=== PATIENT | male | born 1960 | race Caucasian/White ===

== ENCOUNTER → 2017-10-20 | Outpatient (CLI) | payer BC ==
[2017-10-20 07:57] LABS: BASOPHILS % (AUTO) 1 % (0-10); EOSINOPHILS # (AUTO) 0.2 10^3/uL (0.0-0.3); EOSINOPHILS % (AUTO) 2 % (0-10); HEMATOCRIT 49 % (40-54); HEMOGLOBIN 16.8 G/DL (13.3-17.7); LYMPHOCYTES # (AUTO) 1.1 X 10^3 (1.0-4.0); LYMPHOCYTES % (AUTO) 16 % (12-44); MEAN CORPUSCULAR HEMOGLOBIN 33 PG (25-34); MEAN CORPUSCULAR HGB CONC 35 G/DL (32-36); MEAN CORPUSCULAR VOLUME 95 FL (80-99); MEAN PLATELET VOLUME 9.9 FL (7.4-10.4); MONOCYTES # (AUTO) 0.8 X 10^3 (0.0-1.0); MONOCYTES % (AUTO) 11 % (0-12); NEUTROPHILS # (AUTO) 5.2 X 10^3 (1.8-7.8); NEUTROPHILS % (AUTO) 71 % (42-75); PLATELET COUNT 184 10^3/uL (130-400); RED BLOOD COUNT 5.11 10^6/uL (4.35-5.85); RED CELL DISTRIBUTION WIDTH 13.5 % (10.0-14.5); WHITE BLOOD COUNT 7.3 10^3/uL (4.3-11.0)
[2017-10-20 08:11] LABS: ALANINE AMINOTRANSFERASE 47 U/L (0-55); ALBUMIN 3.9 GM/DL (3.2-4.5); ALKALINE PHOSPHATASE 147 U/L (40-136); BILIRUBIN,TOTAL 0.8 MG/DL (0.1-1.0); BUN/CREATININE RATIO 15; CALCIUM 9.2 MG/DL (8.5-10.1); CARBON DIOXIDE 22 MMOL/L (21-32); CHLORIDE 99 MMOL/L (98-107); CHOLESTEROL 138 MG/DL (< 200); CREATININE SERUM 0.79 MG/DL (0.60-1.30); GFR ESTIMATED > 60; GLUCOSE 391 MG/DL (70-105); HDL CHOLESTEROL 25 MG/DL (40-60); POTASSIUM 4.1 MMOL/L (3.6-5.0); SODIUM 132 MMOL/L (135-145); TOTAL PROTEIN 7.1 GM/DL (6.4-8.2); TRIGLYCERIDES 213 MG/DL (<150); VLDL CHOLESTEROL 43 MG/DL (5-40)
== END ==
LOC: LAB 07:22
PROVIDERS: ATTEND Nurse Practitioner Family
DX: Z12.5 Encounter for screening for malignant neoplasm of prostate (principal); R63.4 Abnormal weight loss; R53.83 Other fatigue; L65.9 Nonscarring hair loss, unspecified; I25.2 Old myocardial infarction
CPT/HCPCS: 36415; 80053; 80061; 83036; 84153; 84443; 85025

== ENCOUNTER → 2018-11-15 | Outpatient (CLI) | payer BC | LOC: CARD 09:37 | PROVIDERS: ATTEND Physician Assistant | DX: I11.0 Hypertensive heart disease with heart failure (principal); I25.10 Atherosclerotic heart disease of native coronary artery without angina pectoris; I50.9 Heart failure, unspecified; E78.2 Mixed hyperlipidemia; I51.7 Cardiomegaly | CPT/HCPCS: 93306 ==

== ENCOUNTER 2020-11-12 05:31 | Outpatient (CLI) | payer OTHER, BC ==
[~2020-11-12] VITALS: Ht 177.8 cm; Wt 130.0 kg
[2020-11-12] MEDS ORDERED: SPIR25TA5 PO (12:21)
[2020-11-12] MEDS ORDERED: LISI-729 PO (12:21)
[2020-11-12] MEDS ORDERED: SIMV40TA25 PO (12:21)
[2020-11-12] MEDS ORDERED: CLOP75TA28 PO (12:21)
[2020-11-12] MEDS ORDERED: ASPI-999 PO (12:21)
== END 2020-11-12 12:23 | disposition home or self-care (01) ==
LOC: PREOP 05:31
PROVIDERS: ATTEND Orthopaedic Surgery
DX: Z01.818 Encounter for other preprocedural examination (principal)
CPT/HCPCS: 87081

== ENCOUNTER 2020-11-19 06:18 | Day surgery (SDC) | payer OTHER, BC ==
--- NOTE | 2020-11-09 05:24 | HISTORY AND PHYSICAL ---
DATE OF SERVICE: HISTORY AND PHYSICAL FOR OUTPATIENT SURGERY DATE OF SERVICE OR SURGERY: 11/19/2020. REASON FOR SURGERY: Right knee arthroscopy. HISTORY OF PRESENT ILLNESS: The patient is a 60-year-old gentleman who injured his right knee while climbing a ladder. He felt and heard a pop. He had continued medial knee pain with associated swelling. He had tried rest and activity modification, but reported continued pain and swelling, worse with twisting and pivoting activities. An MRI revealed a complex tear of the medial meniscus as well as a parameniscal cyst. Due to functional impairment and failure to improve with conservative measures, the patient elected to proceed with surgical intervention. REVIEW OF SYSTEMS: No recent chest pain, shortness of breath or dysuria. PAST MEDICAL HISTORY: Diabetes, coronary artery disease, hypertension, sleep apnea. PAST SURGICAL HISTORY: Bilateral carpal tunnel, bilateral cubital tunnel, coronary stent placement. FAMILY HISTORY: Significant for hypertension, diabetes. PRIMARY CARE PROVIDER: None. MEDICATIONS: Simvastatin, spironolactone, lisinopril, clopidogrel. ALLERGIES: No known drug allergies. SOCIAL HISTORY: The patient denies alcohol and tobacco use. PHYSICAL EXAMINATION: GENERAL: The patient is well-developed, well-nourished, in no acute distress. HEENT: Normocephalic, atraumatic. Pupils are equal, round and reactive to light. Oropharynx is clear. NECK: Supple, with no lymphadenopathy. LUNGS: Clear to auscultation bilaterally. HEART: Regular rate and rhythm. ABDOMEN: Soft, nontender, nondistended. EXTREMITIES: The right knee demonstrates tenderness along his medial joint line, has pain medially with Yana's. There is no varus-valgus laxity. Negative anterior and posterior drawer. There is a cystic mass noted on the medial joint line. Range of motion 0/2/130. IMPRESSION: Right knee medial meniscus tear with associated parameniscal cyst. PLAN: Right knee arthroscopy, partial medial meniscectomy, chondroplasty, cyst decompression versus open cyst excision. The patient understands risks, benefits, options, ramifications and recovery and has elected to proceed. Job ID: [id number] DocumentID: [id number] Dictated Date: 11/07/2020 12:26:45 Turret Lathe Tender Date: 11/07/2020 13:17:00 Dictated By: ELVA FITZGERALD MD [facility]AMPUSAdin
[2020-11-19] VITALS (12 sets, daily range): BP systolic 109–133; BP diastolic 66–86
[~2020-11-19] VITALS: Ht 177.8 cm; Wt 130.0 kg
[~2020-11-19 06:18] MED LIST: ASPI-999 PO; CLOP75TA28 PO; LISI-729 PO; SIMV40TA25 PO; SPIR25TA5 PO
[2020-11-19] MEDS ORDERED: LACTATED RINGERS 1,000 ML IV PRN (06:30)
[2020-11-19] MEDS ORDERED: morphine PF (DURAMORPH) 10 MG/10 ML AMP ONE (06:50)
[2020-11-19] MEDS ORDERED: BUPIVACAINE 0.25% 30 ML (SENSORCAINE) VIAL ONE (06:50)
[2020-11-19] MEDS ORDERED: MIDAZOLAM 2 MG/2 ML (VERSED) VIAL ONE (07:08)
[2020-11-19] MEDS ORDERED: ONDANSETRON 4 MG/2 ML (SDV) Z0FRAN ONE (07:08)
[2020-11-19] MEDS ORDERED: proPOfol 200 MG/20 ML (DIPRIVAN) VIAL IV ONE (07:08)
[2020-11-19] MEDS ORDERED: LIDOCAINE PF 2% 5 ML (XYLOCAINE) VIAL ONE (07:08)
[2020-11-19] MEDS ORDERED: fentaNYL INJ 100 MCG/2 ML AMP ONE (07:08)
[2020-11-19] MEDS ORDERED: SEVOFLURANE (ULTANE) 15 ML INHAL SOLN ONE ×2 (07:08→08:15)
[2020-11-19] MEDS ORDERED: HYDROcodone/APAP 7.5 MG/325 MG (LORTAB, LORCET PLUS) TABLET PO PRN (07:30)
[2020-11-19] MEDS ORDERED: ceFAZolin INJECTION 1,000 MG in WATER (STERILE) FOR INJECTION 10 ML IV ONE (07:30)
--- NOTE | 2020-11-19 07:35 | Progress Note-Pre Operative ---
Pre-Operative Progress Note H&P Reviewed The H&P was reviewed, patient examined and no changes noted. Date Seen by Provider: Nov 19, 2020 Time Seen by Provider: 07:20 Date H&P Reviewed: Nov 19, 2020 Time H&P Reviewed: 07:11 Pre-Operative Diagnosis: right knee medial meniscus tear and chondromalacia ELVA FITZGERALD MD Nov 19, 2020 07:35
--- NOTE | 2020-11-19 07:36 | Progress Note-Post Operative ---
Post-Operative Progess Note Surgeon (s)/Merchandising Internship (s) Surgeon ELVA FITZGERALD MD Merchandising Internship: Luis Alberto Julio Pre-Operative Diagnosis right knee medial meniscus tear and chondromalacia Post-Operative Diagnosis right knee medial meniscus tear and chondromalacia of the medial femoral condyle and patella Procedure & Operative Findings Date of Procedure 11/19/20 Procedure Performed/Findings right knee arthroscopic partial medial meniscectomy and chondroplasty of medial femoral condyle and patella Anesthesia Type GETA Estimated Blood Loss Estimated blood loss (mL): minimal Specimens/Packing Specimens Removed none Packing: none ELVA FITZGERALD MD Nov 19, 2020 07:36
[2020-11-19] MEDS ORDERED: LABETALOL HCL 20 MG/4 ML VIAL ONE ×2 (08:01→08:04)
[2020-11-19] MEDS ORDERED: MEPERIDINE (DEMEROL) INJ 50 MG/ML IVP ONE (08:30)
[2020-11-19] MEDS ORDERED: fentaNYL INJ 100 MCG/2 ML AMP IVP ONE (08:30)
[2020-11-19] MEDS ORDERED: ONDANSETRON 4 MG/2 ML (SDV) Z0FRAN IVP PRN (08:30)
[2020-11-19] MEDS ORDERED: morphine INJ 10 MG/ML 1ML (SYR OR VIAL) IVP ONE (08:30)
--- NOTE | 2020-11-19 09:43 | OPERATIVE REPORT ---
DATE OF SERVICE: 11/19/2020 PREOPERATIVE DIAGNOSES: 1. Right knee medial meniscus tear. 2. Right knee chondromalacia of the medial femoral condyle. POSTOPERATIVE DIAGNOSES: 1. Right knee medial meniscus tear. 2. Right knee chondromalacia of the medial femoral condyle. 3. Right knee chondromalacia of the patella. PROCEDURES: 1. Right knee arthroscopic partial medial meniscectomy. 2. Right knee arthroscopic chondroplasty of the medial femoral condyle. 3. Right knee arthroscopic chondroplasty of the patella. SURGEON: Bertram Fitzgerald MD MARKETING EDITOR: Luis Alberto Julio, who assisted throughout the procedure and closed the incisions. ANESTHESIA: General endotracheal by Luis Alberto Spear CRNA. TOURNIQUET TIME: Not applicable. ESTIMATED BLOOD LOSS: Minimal. DRAINS: None. COMPLICATIONS: None. POSTOPERATIVE PLAN: Routine arthroscopy protocol. The patient was transferred to the recovery room, awake and in stable condition. STATEMENT OF MEDICAL NECESSITY: The patient is a 60-year-old gentleman who injured his right knee at work. He felt and heard a pop. He was tender along his medial joint line with a positive Yana's maneuver. Ultimately, an MRI was obtained, which revealed a medial meniscus tear with an associated parameniscal cyst. Due to functional impairment and failure to improve with conservative measures, the patient elected to proceed with surgical intervention. Examination under anesthesia revealed range of motion 0/2/135 with negative Michelle, negative anterior and posterior drawer. No varus or valgus laxity and negative pivot shift. Arthroscopic findings: The patella demonstrated grade II chondral flaps of the medial facet in an 8 x 8 area. Trochlea demonstrated no significant chondral abnormalities. Medial and lateral gutters were clear. The ACL and PCL were intact. The lateral compartment demonstrated no meniscal or chondral pathology. The medial compartment demonstrated complex tear of the posterior horn and body of the medial meniscus involving approximately 1/2 posterior horn and body. In addition, there were grade III chondral flaps over the central portion of femoral condyle in a 20 x 20 area. PROCEDURE IN DETAIL: After risks and benefits of procedure were discussed and questions were answered, an informed consent was signed and placed on chart, the operative site was confirmed in the preoperative holding area initialed by the surgeon. The patient was then transferred to the operating room and after adequate levels of general endotracheal anesthetic were obtained, a timeout was called, confirming the operative site. Examination under anesthesia was performed with above findings noted. The right lower extremity was prepped and draped in the usual sterile fashion. The knee joint was injected with 60 mL fluid and standard inferolateral portal was placed for the arthroscope under direct visualization, inferior medial portal was created. The menisci and cruciates carefully probed with the above findings noted. The unstable chondral flaps on the patella were debrided with a shaver back to a stable edge. Scope was then redirected into the medial compartment where the unstable chondral flaps and the medial femoral condyle were debrided with shaver back to a stable edge and the posterior horn and body of the medial meniscus were debrided with a biter and shaver back to stable edges, removing approximately 1/2 posterior horn and body. Cyst decompressed with debridement of the meniscus tear. The knee joint was copiously irrigated. Port sites were closed with 4-0 nylon in simple interrupted fashion. Knee was injected with Duramorph. A soft dressing was applied, and the patient was transferred to the recovery room, awake and in stable condition. Job ID: [id number] DocumentID: [id number] Dictated Date: 11/19/2020 08:28:33 Multimedia Services Coordinator Date: 11/19/2020 09:42:44 Dictated By: BERTRAM FITZGERALD MD
--- NOTE | 2020-11-19 11:07 | Anesthesia-General Post-Op ---
General Patient Condition Mental Status/LOC: Same as Preop Cardiovascular: Satisfactory Nausea/Vomiting: Absent Respiratory: Satisfactory Pain: Controlled Complications: Absent Post Op Complications Complications None Follow Up Care/Instructions Patient Instructions None needed. Anesthesia/Patient Condition Patient Condition Patient is doing well, no complaints, stable vital signs, no apparent adverse anesthesia problems. No complications reported per nursing. RAMON GRANT CRNA Nov 19, 2020 11:07
--- NOTE | 2020-11-19 13:20 | Physical Therapy Ortho Eval ---
PT Orthopedic Evaluation Type of Surgery Knee Scope Prior Level of Function Current Living Status: Significant Other Locomotion (Upon Admit): Independent Established Durable Medical Eq: None Subjective Subjective Patient currently rates right knee pain at 0/10. Entry Into Home: Stairs With Railing Steps Into Home: 2 ROM ROM: WFL, except focal deficit Strength Strength: WFL Transfer SCALE: Activities may be completed with or without assistive devices. 1-Gzzoioiknu-sungefg completes the activity by him/herself with no assistance from a helper. 5-Set-up or Clean-up Assistance-helper sets up or cleans up; patient completes activity. [place] assists only prior to or following the activity. 4-Supervision or Touching Assistance-helper provides verbal cues and/or touching/steadying and/or contact guard assistance as patient completes activity. Assistance may be provided throughout the activity or intermittently. 3-Partial/Moderate Assistance-helper does LESS THAN HALF the effort. [place] lifts, holds or supports trunk or limbs, but provides less than half the effort. 2-Substantial/Maximal Assistance-helper does MORE THAN HALF the effort. [place] lifts or holds trunk or limbs and provides more than half the effort. 5-Kwfoycyww-yaccyw does ALL the effort. Patient does none of the effort to complete the activity. Or, the assistance of 2 or more helpers is required for the patient to complete the activity. If activity was not attempted, code reason: 7-Patient Refused. 9-Not Applicable-not attempted and the patient did not perform the activity before the current illness, exacerbation or injury. 10-Not Attempted due to Environmental Limitations-(lack of equipment, weather restraints, etc.). 88-Not Attempted due to Medical Conditions or Safety Concerns. Transfers (B, C, W/C) (QC): 6 Gait Gait Assistive Device: Crutches Right Lower Extremity: Right Weight Bearing Status RLE: Weight Bearing/Tolerated Gait (QC): 6 Distance: 50 Gait Level of Assist: 6 Treatment Rendered Treatment: Therapeutic Exercises, Gait Train, Step Train Assessment/Goals Goal Time Frame: 1 Visit Understands HEP: Yes Safe Ambulation: Yes Plan Treatment Plan: Discharge Time Time In: 1005 Time Out: 1025 Total Billed Treatment Time: 20 Billed Treatment Time Visit, Srikanth Brennan JOHN A PT Nov 19, 2020 13:20
== END 2020-11-19 10:30 | disposition home or self-care (01) ==
LOC: SDC 06:18
PROVIDERS: ATTEND Orthopaedic Surgery
DX: S83.231A Complex tear of medial meniscus, current injury, right knee, initial encounter (principal); M22.41 Chondromalacia patellae, right knee; M23.003 Cystic meniscus, unspecified medial meniscus, right knee; I25.10 Atherosclerotic heart disease of native coronary artery without angina pectoris; I11.0 Hypertensive heart disease with heart failure; I50.9 Heart failure, unspecified; G47.33 Obstructive sleep apnea (adult) (pediatric); E11.9 Type 2 diabetes mellitus without complications; E66.01 Morbid (severe) obesity due to excess calories; F17.210 Nicotine dependence, cigarettes, uncomplicated; E78.2 Mixed hyperlipidemia; Z79.82 Long term (current) use of aspirin; Z79.899 Other long term (current) drug therapy; Z68.41 Body mass index [BMI] 40.0-44.9, adult; Z79.02 Long term (current) use of antithrombotics/antiplatelets; Z98.890 Other specified postprocedural states

== ENCOUNTER → 2021-10-16 | Outpatient (CLI) | payer BC ==
[~2021-10-16] MED LIST changes: -LISI-729 PO; +LISI5TAB20 PO
== END ==
LOC: CARD 08:23
PROVIDERS: ATTEND Internal Medicine Cardiovascular Disease
DX: I11.9 Hypertensive heart disease without heart failure (principal)
CPT/HCPCS: 93306